=== PATIENT | female | born 1965 | race Caucasian/White ===

== ENCOUNTER 2018-09-13 08:25 | Outpatient (CLI) | payer OTHER ==
--- NOTE | 2018-09-13 09:28 | MMO ---
Bilateral MAMMO Bilat Diag [facility]. CLINICAL HISTORY: Patient is 53 years old and is seen for diagnostic exam and palpable abnormality in the right breast. The patient has no family history of breast cancer. The patient has no personal history of cancer. VIEWS: The views performed were: bilateral craniocaudal with tomosynthesis; bilateral mediolateral oblique with tomosynthesis; and bilateral mediolateral. FILMS COMPARED: The present examination has been compared to a prior imaging study performed at [facility] on 09/13/2018. MAMMOGRAM FINDINGS: The breasts are almost entirely fat. There are no mammographic or sonographic abnormalities in the area of palpable concern. The patient is referred back to her clinician. Negative imaging findings should not preclude biopsy if clinical findings are suspicious. There are no suspicious masses, suspicious calcifications, or areas of architectural distortion. IMPRESSION: THERE ARE NO MAMMOGRAPHIC OR SONOGRAPHIC ABNORMALITIES IN THE AREA OF PALPABLE CONCERN. THE PATIENT IS REFERRED BACK TO HER CLINICIAN. NEGATIVE IMAGING FINDINGS SHOULD NOT PRECLUDE BIOPSY IF CLINICAL FINDINGS ARE SUSPICIOUS. 3BTHE RESULTS OF THIS EXAM WERE SENT TO THE PATIENT.0B ACR BI-RADS Category 2 - Benign finding MAMMOGRAPHY NOTE: 1. A negative mammogram report should not delay a biopsy if a dominant of clinically suspicious mass is present. 2. Approximately 10% to 15% of breast cancers are not detected by mammography. 3. Adenosis and dense breasts may obscure an underlying neoplasm.
--- NOTE | 2018-09-13 10:27 | ULT ---
LIMITED RIGHT BREAST ULTRASOUND: Date: 09/13/18 PROVIDED CLINICAL HISTORY: Right breast palpable abnormality. FINDINGS: Limited sonographic interrogation of the right breast was performed in the region of palpable concern . The sonographic appearance of the breast tissue in this region is normal. IMPRESSION: BIRADS Category 1 - Negative. Negative imaging findings should not preclude further evaluation of a c linically suspicious area. The patient is referred back to her clinician. POS: OFF
== END 2018-09-13 08:26 | disposition home or self-care (01) ==
LOC: BICMAMMO 08:25
PROVIDERS: ATTEND Family Medicine
DX: N63.10 Unspecified lump in the right breast, unspecified quadrant (principal); N60.21 Fibroadenosis of right breast
CPT/HCPCS: 77066; G0279

== ENCOUNTER 2022-04-17 09:19 | Inpatient (IN) | payer OTHER ==
[2022-04-17] MEDS ORDERED: Diltiazem 125 MG/25 ML ONE (09:26)
[2022-04-17 10:25] LABS: #Lymphocytes 1.7 thou/uL (1.20-3.40); #Neutrophils 13.8 thou/uL (1.40-6.50); %Basophils 0.3 % (0.0-1.0); %Eosinophils 0.2 % (0.0-10.0); %Monocytes 5.9 % (0.0-10.0); %Neutrophils 83.6 % (42.0-75.0); Hemoglobin 14.1 g/dL (12.0-16.0); Mean Corpuscular HGB CONC 33.6 g/dL (32.0-36.0); Mean Corpuscular Hemoglobin 32.6 pg (27.0-31.0); Mean Corpuscular Volume 96.8 fl (78.0-98.0); Mean Platelet Volume 8.2 fL (7.4-10.4); Platelet Count 249 10x3/uL (130-400); RBC Distribution Width 13.1 % (11.5-14.5); Red Blood Cell (RBC) Count 4.32 mill/uL (4.20-5.40); White Blood Cell (WBC) Count 16.5 10x3/uL (4.8-10.8)
[2022-04-17 10:44] LABS: ALT (SGPT) 32 U/L (8-55); AST (SGOT) 22 U/L (5-34); Albumin 3.6 g/dL (3.5-5.0); Alkaline Phosphatase 145 U/L (40-110); Anion Gap 13 mmol/L (10-20); BUN (Urea Nitrogen) 10 mg/dL (9.8-20.1); Bilirubin, Total 0.6 mg/dL (0.2-1.2); Calc. Creatinine Clearance 0 mL/min (70-130); Calcium 8.8 mg/dL (7.8-10.44); Carbon Dioxide 19 mmol/L (22-29); Chloride 106 mmol/L (98-107); Estimated GFR 102; Globulin 3.3 g/dL (2.4-3.5); Glucose 310 mg/dL (70-105); Magnesium 1.7 mg/dL (1.6-2.6); Potassium 4.3 mmol/L (3.5-5.1); Protein, Total 6.9 g/dL (6.0-8.3); Sodium 134 mmol/L (136-145)
[2022-04-17] MEDS ORDERED: Vancomycin 1 GM/200 ML (FROZEN) BAG ONE (10:47)
[2022-04-17] MEDS ORDERED: Cefepime 2 GM VIAL ONE (10:47)
[2022-04-17 11:17] LABS: Actual Bicarbonate (HCO3v) 22 mEq/L (22-28); Base Excess -1.5 mEq/L (-2.0 to +3.0); Calcium, Ionized (venous) 1.09 mmol/L (1.16-1.32); Chloride (VBG) 104 mmol/L (98-106); Hemoglobin (Hb) 14.5 g/dL (11.7-16.0); Potassium (VBG) 4.02 mmol/L (3.70-5.30); Sodium 135.1 mmol/L (133-146); pH (venous) 7.43 (7.32-7.43)
[2022-04-17] MEDS ORDERED: Ipratropium/Albuterol 3 ML NEB NEB PRN (11:39)
[2022-04-17 11:41] LABS: SARS-CoV-2 NAA Rapid Test Not Detected (NotDetected)
[2022-04-17] MEDS ORDERED: Dextrose 50% Abboject 50 ML SYRINGE SLOW IVP PRN (11:42)
[2022-04-17] MEDS ORDERED: HumaLOG 300 UNITS/3 ML VIAL SC PRN (11:42)
[2022-04-17] MEDS ORDERED: Acetaminophen 325 MG TAB PO PRN (11:42)
[2022-04-17] MEDS ORDERED: Ondansetron PF 4 MG/2 ML Vial IVP PRN (11:42)
[2022-04-17] MEDS ORDERED: Dextrose 5% in Water 1,000 ML IV PRN (11:42)
[2022-04-17] MEDS ORDERED: Diltiazem 125 MG in Sodium Chloride 0.9% 100 ML IVPB SCH (11:45)
[2022-04-17 12:58] LABS: Free T4 (Free Thyroxine) 1.33 ng/dL (0.70-1.48); Thyroid Stimulating Hormone 0.6295 uIU/mL (0.35-4.94)
[2022-04-17] MEDS ORDERED: Insulin Glargine 30 UNITS/0.3 ML VIAL SC SCH (13:00)
[2022-04-17] MEDS ORDERED: Furosemide 20 MG/2 ML VIAL SLOW IVP SCH (13:00)
[2022-04-17] MEDS ORDERED: Ipratropium/Albuterol 3 ML NEB NEB SCH (13:15)
[2022-04-17 13:38] LABS: Troponin I Less than 0.010 ng/mL (< 0.028)
[2022-04-17] MEDS ORDERED: cefTRIAXone\\ROCEPHIN 1 GM VIAL ONE (13:50)
[2022-04-17] MEDS ORDERED: Furosemide 20 MG/2 ML VIAL ONE (13:50)
[2022-04-17] MEDS ORDERED: methylPREDNISolone Sod Succ 40 MG VIAL ONE (13:50)
[2022-04-17] MEDS: methylPREDNISolone Sod Succ 40 MG VIAL IVP SCH ×2 (13:59→19:59)
[2022-04-17] MEDS: cefTRIAXone\\ROCEPHIN 1 GM in Sodium Chloride 0.9% 100 ML IVPB SCH (13:59)
[2022-04-17] MEDS: Ipratropium/Albuterol 3 ML NEB NEB SCH ×3 (14:54→22:58)
[2022-04-17 17:51] VITALS: BMI 39.2
[2022-04-17] MEDS: HumaLOG 300 UNITS/3 ML VIAL SC PRN (18:41)
[2022-04-17] MEDS: Mometasone 100 MCG/Formoterol 5 MCG 120 PUFF INHALER INH SCH (19:14)
[2022-04-17] MEDS: Insulin Glargine 30 UNITS/0.3 ML VIAL SC SCH (19:59)
[2022-04-17] MEDS: Famotidine 20 MG TAB PO SCH (19:59)
[2022-04-17] MEDS ORDERED: Amiodarone 450 MG in Dextrose 5% in Water 250 ML IVPB SCH (20:00)
[2022-04-17] MEDS ORDERED: Amiodarone 150 MG, Admixture Fee 1 EACH in Dextrose 5% in Water 100 ML IVPB SCH (20:00)
[2022-04-17] MEDS: Buprenorphine 8mg/Naloxone 2mg per 1 FILM PO SCH (20:46)
[2022-04-18] MEDS: HumaLOG 300 UNITS/3 ML VIAL SC PRN ×4 (05:34→16:19)
[2022-04-18] MEDS: methylPREDNISolone Sod Succ 40 MG VIAL IVP SCH (05:34)
[2022-04-18 07:42] LABS: #Lymphocytes 0.9 thou/uL (1.20-3.40); #Monocytes 0.2 thou/uL (0.11-0.59); #Neutrophils 13.9 thou/uL (1.40-6.50); %Eosinophils 0.1 % (0.0-10.0); %Lymphocytes 5.9 % (21.0-51.0); %Monocytes 1.6 % (0.0-10.0); %Neutrophils 92.4 % (42.0-75.0); Mean Corpuscular HGB CONC 32.5 g/dL (32.0-36.0); Mean Corpuscular Hemoglobin 31.8 pg (27.0-31.0); Mean Corpuscular Volume 97.8 fl (78.0-98.0); Mean Platelet Volume 8.2 fL (7.4-10.4); Platelet Count 248 10x3/uL (130-400); RBC Distribution Width 13.1 % (11.5-14.5); Red Blood Cell (RBC) Count 4.42 mill/uL (4.20-5.40)
[2022-04-18] MEDS: Mometasone 100 MCG/Formoterol 5 MCG 120 PUFF INHALER INH SCH ×2 (07:45→19:29)
[2022-04-18] MEDS: Ipratropium/Albuterol 3 ML NEB NEB SCH ×4 (07:48→23:11)
[2022-04-18 07:49] LABS: Anion Gap 14 mmol/L (10-20); BUN (Urea Nitrogen) 12 mg/dL (9.8-20.1); Calc. Creatinine Clearance 135 mL/min (70-130); Calcium 9.3 mg/dL (7.8-10.44); Carbon Dioxide 22 mmol/L (22-29); Chloride 103 mmol/L (98-107); Estimated GFR 92; Potassium 4.5 mmol/L (3.5-5.1); Sodium 134 mmol/L (136-145)
[2022-04-18 08:03] LABS: Glucose 409 mg/dL (70-105)
[2022-04-18] MEDS: Furosemide 40 MG/4 ML VIAL SLOW IVP SCH (08:49)
[2022-04-18] MEDS: Insulin Glargine 30 UNITS/0.3 ML VIAL SC SCH ×2 (08:50→20:16)
[2022-04-18] MEDS: Famotidine 20 MG TAB PO SCH ×2 (08:50→20:14)
[2022-04-18] MEDS: Buprenorphine 8mg/Naloxone 2mg per 1 FILM PO SCH ×2 (10:21→21:55)
[2022-04-18] MEDS: cefTRIAXone\\ROCEPHIN 1 GM in Sodium Chloride 0.9% 100 ML IVPB SCH (13:22)
[2022-04-18] MEDS: Azithromycin 250 MG TAB PO SCH (13:22)
[2022-04-18] MEDS ORDERED: Insulin Regular 300 UNITS/3 ML VIAL IVP SCH (14:00)
[2022-04-18] MEDS: Amiodarone 450 MG, Admixture Fee 1 EACH in Dextrose 5% in Water 250 ML IVPB SCH (20:16)
[2022-04-19] MEDS ORDERED: Docusate 100 MG CAP PO PRN (00:34)
[2022-04-19] MEDS: HumaLOG 300 UNITS/3 ML VIAL SC PRN (06:31)
[2022-04-19] MEDS: Ipratropium/Albuterol 3 ML NEB NEB SCH ×3 (07:35→18:09)
[2022-04-19] MEDS: Mometasone 100 MCG/Formoterol 5 MCG 120 PUFF INHALER INH SCH ×2 (07:38→18:10)
[2022-04-19] MEDS: Furosemide 40 MG/4 ML VIAL SLOW IVP SCH (08:03)
[2022-04-19] MEDS: Insulin Glargine 30 UNITS/0.3 ML VIAL SC SCH ×3 (08:07→20:57)
[2022-04-19] MEDS: Famotidine 20 MG TAB PO SCH ×2 (08:09→20:56)
[2022-04-19] MEDS: predniSONE 20 MG TAB PO SCH (08:09)
[2022-04-19] MEDS ORDERED: BUPRENORPHINE HCL SL SCH (09:00)
[2022-04-19] MEDS ORDERED: NALOXONE HCL SL SCH (09:00)
[2022-04-19] MEDS: NALOXONE HCL SL SCH ×2 (09:37→15:43)
[2022-04-19] MEDS: BUPRENORPHINE HCL SL SCH ×2 (09:37→15:43)
[2022-04-19] MEDS: HumaLOG 300 UNITS/3 ML VIAL SC SCH ×2 (11:42→17:08)
[2022-04-19] MEDS: Amiodarone 450 MG, Admixture Fee 1 EACH in Dextrose 5% in Water 250 ML IVPB SCH (11:43)
[2022-04-19] MEDS: Azithromycin 250 MG TAB PO SCH (15:43)
[2022-04-19] MEDS: cefTRIAXone\\ROCEPHIN 1 GM in Sodium Chloride 0.9% 100 ML IVPB SCH (15:44)
[2022-04-20] MEDS: Ipratropium/Albuterol 3 ML NEB NEB SCH ×4 (01:40→18:15)
[2022-04-20] MEDS: Mometasone 100 MCG/Formoterol 5 MCG 120 PUFF INHALER INH SCH ×2 (07:14→18:16)
[2022-04-20 07:17] LABS: Hemoglobin 13.9 g/dL (12.0-16.0); Mean Corpuscular HGB CONC 32.6 g/dL (32.0-36.0); Mean Corpuscular Hemoglobin 32.1 pg (27.0-31.0); Mean Corpuscular Volume 98.4 fl (78.0-98.0); Mean Platelet Volume 8.1 fL (7.4-10.4); Platelet Count 249 10x3/uL (130-400); RBC Distribution Width 13.2 % (11.5-14.5); Red Blood Cell (RBC) Count 4.34 mill/uL (4.20-5.40); White Blood Cell (WBC) Count 13.6 10x3/uL (4.8-10.8)
[2022-04-20 07:42] LABS: Anion Gap 14 mmol/L (10-20); BUN (Urea Nitrogen) 16 mg/dL (9.8-20.1); Calc. Creatinine Clearance 145 mL/min (70-130); Calcium 9.2 mg/dL (7.8-10.44); Carbon Dioxide 26 mmol/L (22-29); Chloride 101 mmol/L (98-107); Estimated GFR 100; Glucose 194 mg/dL (70-105); Potassium 3.7 mmol/L (3.5-5.1); Sodium 137 mmol/L (136-145)
[2022-04-20] MEDS: Famotidine 20 MG TAB PO SCH ×2 (07:50→21:35)
[2022-04-20] MEDS: Insulin Glargine 30 UNITS/0.3 ML VIAL SC SCH ×2 (07:50→21:35)
[2022-04-20] MEDS: predniSONE 20 MG TAB PO SCH (07:57)
[2022-04-20] MEDS: Furosemide 40 MG/4 ML VIAL SLOW IVP SCH (07:57)
[2022-04-20] MEDS ORDERED: Furosemide 40 MG TAB PO SCH (08:15)
[2022-04-20] MEDS: BUPRENORPHINE HCL SL SCH ×2 (09:35→16:21)
[2022-04-20] MEDS: NALOXONE HCL SL SCH ×2 (09:35→16:21)
[2022-04-20] MEDS: cefTRIAXone\\ROCEPHIN 1 GM in Sodium Chloride 0.9% 100 ML IVPB SCH (16:22)
[2022-04-20] MEDS: Azithromycin 250 MG TAB PO SCH (16:22)
[2022-04-20] MEDS: HumaLOG 300 UNITS/3 ML VIAL SC PRN (18:21)
[2022-04-20] MEDS: Amiodarone 450 MG, Admixture Fee 1 EACH in Dextrose 5% in Water 250 ML IVPB SCH (22:57)
[2022-04-21] MEDS: Ipratropium/Albuterol 3 ML NEB NEB SCH ×3 (01:35→13:04)
[2022-04-21] MEDS ORDERED: Furosemide 40 MG TAB PO SCH ×2 (07:30→09:00)
[2022-04-21] MEDS: Mometasone 100 MCG/Formoterol 5 MCG 120 PUFF INHALER INH SCH (08:08)
[2022-04-21] MEDS: NALOXONE HCL SL SCH ×2 (08:51→17:54)
[2022-04-21] MEDS: BUPRENORPHINE HCL SL SCH ×2 (08:51→17:54)
[2022-04-21] MEDS: Famotidine 20 MG TAB PO SCH (08:52)
[2022-04-21] MEDS: predniSONE 20 MG TAB PO SCH (08:52)
[2022-04-21] MEDS: Insulin Glargine 30 UNITS/0.3 ML VIAL SC SCH (08:52)
[2022-04-21] MEDS ORDERED: Losartan 25 MG TAB PO SCH (09:00)
[2022-04-21] MEDS ORDERED: Hydrochlorothiazide 25 MG TAB PO SCH (09:00)
[2022-04-21] MEDS ORDERED: Non-Formulary Item 1 EACH (Losartan/Hydrochlorothiazide [Losartan-Hctz 100-12.5 Mg Tab] 1 PO SCH (09:00)
[2022-04-21] MEDS ORDERED: PROPOFOL 40 ML ONE (14:05)
[2022-04-21] MEDS ORDERED: PROPOFOL 200 MG/20 ML VIAL ONE (14:25)
[2022-04-21] MEDS: cefTRIAXone\\ROCEPHIN 1 GM in Sodium Chloride 0.9% 100 ML IVPB SCH (16:34)
[2022-04-21 16:47] VITALS: BP 150/72; TEMP 97.7
[2022-04-21] MEDS: Azithromycin 250 MG TAB PO SCH (17:54)
[2022-04-21] MEDS ORDERED: Amiodarone 200 MG TAB PO SCH ×2 (18:00→21:00)
[2022-04-21] MEDS ORDERED: Apixaban 5 MG TAB PO SCH (21:00)
[2022-04-26] MEDS ORDERED: Amiodarone 200 MG TAB PO SCH (09:00)
== END 2022-04-21 19:00 | disposition home or self-care (01) | DRG 189 ==
LOC: ERS 09:19 → ERHOLD 11:21 → 2SW 16:29
PROVIDERS: ADMIT Internal Medicine; ATTEND Internal Medicine
PROC: 5A2204Z Restoration of Cardiac Rhythm, Single (ICD-10-PCS; principal; 2022-04-21)
PROC: B24BZZ4 Ultrasonography of Heart with Aorta, Transesophageal (ICD-10-PCS; 2022-04-21)
DX: J96.01 Acute respiratory failure with hypoxia (principal); I48.92 Unspecified atrial flutter; J44.1 Chronic obstructive pulmonary disease with (acute) exacerbation; J81.1 Chronic pulmonary edema; Z20.822 Contact with and (suspected) exposure to COVID-19; I10 Essential (primary) hypertension; F17.210 Nicotine dependence, cigarettes, uncomplicated; E11.65 Type 2 diabetes mellitus with hyperglycemia; M06.9 Rheumatoid arthritis, unspecified; E87.70 Fluid overload, unspecified; E78.5 Hyperlipidemia, unspecified; E66.9 Obesity, unspecified; Z88.6 Allergy status to analgesic agent; Z79.899 Other long term (current) drug therapy; Z79.4 Long term (current) use of insulin; Z90.710 Acquired absence of both cervix and uterus; Z90.49 Acquired absence of other specified parts of digestive tract; Z82.49 Family history of ischemic heart disease and other diseases of the circulatory system; Z71.6 Tobacco abuse counseling; Z68.39 Body mass index [BMI] 39.0-39.9, adult; Z86.16 Personal history of COVID-19
CPT/HCPCS: 36415; 36416; 71045; 80048; 80053; 82010; 82805; 83036; 83605; 83735; 83880; 84145; 84439; 84443; 84484; 85025; 85027; 87040; 92960; 93005; 93010; 93306; 93312; 94640; 94760; 96365; 96367; 96375; J0282; J0692; J0696; J1650; J1815; J1940; J2704; J2920; J3370-JW; J3490; J7070; J7512; J7620